=== PATIENT | female | born 1930 | race Caucasian/White ===

== ENCOUNTER 2018-09-15 18:20 | Emergency (ER) | payer MEDICARE, OTHER ==
[2018-09-15 18:34] VITALS: RESP 16
--- NOTE | 2018-09-15 18:59 | ED ---
General Adult HPI - General Chief complaint: Fall Stated complaint: Fall Source: EMS Mode of arrival: EMS Limitations: no limitations - History of Present Illness Initial comments: Dictation was produced using [email or web address] dictation software. please excuse any grammatical, word or spelling errors. Chief Complaint: 87-year-old female on L [place] presents from neurologic after fall out of wheelchair. History of Present Illness: Patient is a 7-year-old female who fell out of her wheelchair approximately 1 hour prior to arrival. Patient was at the medical [place] where she fell asleep. She fell asleep and fell forward out of her wheelchair. Follows witnessed by senior care staff. She presents here with her family member. Patient is on L Domenico for atrial fibrillation. Patient denies any loss of consciousness. Patient noted significant swelling around the right eye. Denies any vision loss or The ROS documented in this emergency department record has been reviewed and confirmed by me. Those systems with pertinent positive or negative responses have been documented in the HPI. All other systems are other negative and/or noncontributory. - Related Data Home Medications Medication Instructions Recorded Confirmed Acetaminophen [Tylenol] 650 mg PO Q8H PRN 09/15/18 09/15/18 Aspirin EC [Ecotrin Low Dose] 81 mg PO DAILY@0800 09/15/18 09/15/18 Baclofen [Lioresal] 5 mg PO BID 09/15/18 09/15/18 Cholecalciferol (Vitamin D3) 2,000 unit PO DAILY 09/15/18 09/15/18 [Vitamin D3] Lisinopril [Zestril] 20 mg PO DAILY 09/15/18 09/15/18 Metoprolol Tartrate [Lopressor] 25 mg PO BID 09/15/18 09/15/18 Polyethylene Glycol 3350 [Miralax] 17 gm PO DAILY PRN 09/15/18 09/15/18 Pravastatin Sodium [Pravachol] 40 mg PO HS 09/15/18 09/15/18 Sennosides/Docusate Sodium 1 tab PO Q12H PRN 09/15/18 09/15/18 [Senna-S Laxative Tablet] cloNIDine HCL [Catapres] 0.1 mg PO Q8H PRN 09/15/18 09/15/18 traMADol HCL [Ultram] 50 mg PO TID@0500,1300,2100 09/15/18 09/15/18 Previous Rx's Medication Instructions Recorded Apixaban [Eliquis] 2.5 mg PO BID #60 tab 04/21/16 Erythromycin Ophth Oint [Romycin 1 applic RIGHT EYE QID #1 gm 09/15/18 Ophth Oint] Allergies Allergy/AdvReac Type Severity Reaction Status Date / Time Mushroom AdvReac Nausea & Verified 09/15/18 18:34 Vomiting shellfish derived [Shellfish] AdvReac Unknown Verified 09/15/18 18:34 Review of Systems ROS Statement: Those systems with pertinent positive or pertinent negative responses have been documented in the HPI. ROS Other: All systems not noted in ROS Statement are negative. Past Medical History Past Medical History: Atrial Fibrillation, CVA/TIA, Hyperlipidemia, Hypertension , Osteoarthritis (OA) Additional Past Medical History / Comment(s): Diverticulitis History of Any Multi-Drug Resistant Organisms: None Reported Past Surgical History: No Surgical Hx Reported Additional Past Surgical History / Comment(s): Ear Surgery Past Anesthesia/Blood Transfusion Reactions: No Reported Reaction Past Psychological History: No Psychological Hx Reported Smoking Status: Former smoker Past Alcohol Use History: Occasional Past Drug Use History: None Reported - Past Family History Mother Family Medical History: Cancer, GI Bleed Additional Family Medical History / Comment(s): Hodjkin's disease General Exam - General Exam Comments Initial Comments: PHYSICAL EXAM: General Impression: Alert and oriented x3, not in acute distress HEENT: Ecchymoses around the periorbital region on the right eye without tarsal plate sparing, extra-ocular movements intact, pupils equal and reactive to light bilaterally, mucous membranes moist, no hemotympanum, no blood in the naris, no vital sign Cardiovascular: Heart regular rate and rhythm, S1&S2 audible, no murmurs, rubs or gallops Chest: Lungs clear to auscultation bilaterally, no rhonchi, no wheeze, no rales Abdomen: Bowel sounds present, abdomen soft, non-tender, non-distended, no organomegaly Musculoskeletal: Pulses present and equal in all extremities, no peripheral edema Motor: Inability to move right shoulder which is chronic Neurological: CN II-XII grossly intact, no focal motor or sensory deficits noted Skin: Intact with no visualized rashes Psych: Normal affect and mood Limitations: no limitations Course Vital Signs 09/15/18 18:25 Temperature 97.6 F Pulse Rate 98 Respiratory 16 Rate Blood Pressure 118/90 O2 Sat by Pulse 95 Oximetry Medical Decision Making - Medical Decision Making ED course: An-year-old female on L Markie presents after head trauma after falling out of wheelchair. Vital signs upon arrival are within acceptable limits.Laboratory evaluation obtained showing no acute processes. Computed tomography scan of the head and C-spine does not show any acute intracranial processes. Facial CT does not show any fractures. Chest x-ray shows no acute processes. Vision testing was within normal limits. Patient had intraocular pressures measured which was within normal limits on bilateral eyes. Patient had fluorescein testing there was a small corneal abrasion noted to the 4 o'clock position of the right eye. Patient laceration was repaired using Steri-Strips. Tetanus is updated. Patient given prescription for erythromycin ointment and told to follow-up with health and wellness advisor for management of corneal abrasion. - Lab Data Result diagrams: 09/15/18 18:55 Lab Results 09/15/18 09/15/18 Range/Units 18:55 18:55 WBC 7.0 (3.8-10.6) k/uL RBC 4.54 (3.80-5.40) m/uL Hgb 13.4 (11.4-16.0) gm/dL Hct 42.0 (34.0-46.0) % MCV 92.6 (80.0-100.0) fL MCH 29.5 (25.0-35.0) pg MCHC 31.8 (31.0-37.0) g/dL RDW 14.0 (11.5-15.5) % Plt Count 309 (150-450) k/uL Neutrophils % 70 % Lymphocytes % 17 % Monocytes % 9 % Eosinophils % 3 % Basophils % 1 % Neutrophils # 4.9 (1.3-7.7) k/uL Lymphocytes # 1.2 (1.0-4.8) k/uL Monocytes # 0.6 (0-1.0) k/uL Eosinophils # 0.2 (0-0.7) k/uL Basophils # 0.0 (0-0.2) k/uL PT 10.9 (9.0-12.0) sec INR 1.1 (<1.2) Disposition Clinical Impression: Facial contusion Disposition: HOME SELF-CARE Condition: Good Instructions: Fall Prevention for Older Adults (ED) Prescriptions: Erythromycin Ophth Oint [Romycin Ophth Oint] 1 applic RIGHT EYE QID #1 gm Is patient prescribed a controlled substance at d/c from ED?: No Referrals: Oriana Garcia MD [Primary Care Provider] - 1-2 days Bucky Hart MD [STAFF PHYSICIAN] - 1-2 days Time of Disposition: 20:23
[2018-09-15 19:11] LABS: Basophils % (A) 1 %; Eosinophils # (A) 0.2 k/uL (0-0.7); Eosinophils % (A) 3 %; HGB 13.4 gm/dL (11.4-16.0); Lymphocytes # (A) 1.2 k/uL (1.0-4.8); Lymphocytes % (A) 17 %; MCH 29.5 pg (25.0-35.0); MCHC 31.8 g/dL (31.0-37.0); MCV 92.6 fL (80.0-100.0); Mean Platelet Volume 6.8; Monocytes # (A) 0.6 k/uL (0-1.0); Monocytes % (A) 9 %; Neutrophils # (A) 4.9 k/uL (1.3-7.7); Neutrophils % (A) 70 %; Platelet Count 309 k/uL (150-450); RBC 4.54 m/uL (3.80-5.40)
--- NOTE | 2018-09-15 19:36 | CT ---
EXAMINATION TYPE: CT facial bones wo con DATE OF EXAM: 09/15/2018 COMPARISON: None HISTORY: Fall injury, bruising to right eye CT DLP: 2173.6 mGycm Automated exposure control for dose reduction was used. TECHNIQUE: CT scan of the sinuses is performed without contrast, axial images are obtained, coronal r eformatted images are also reviewed. FINDINGS: There is right-sided periorbital soft tissue swelling. The orbital margins are intact. Ther e is no evidence of a blowout fracture. There is fairly normal aeration of the paranasal sinuses. Ricki al bone appears intact. Maxilla is intact. Zygomatic arches appear normal. The mandibular ring appear s intact. Temporomandibular joints are intact. There is some osteoarthritis in the right temporal man dibular joint. IMPRESSION: Right periorbital soft tissue swelling. No fracture seen.
[2018-09-15 19:42] LABS: INR 1.1 (<1.2); Prothrombin Time 10.9 sec (9.0-12.0)
--- NOTE | 2018-09-15 19:47 | CT ---
EXAMINATION TYPE: CT brain demi soares DATE OF EXAM: 09/15/2018 COMPARISON: CT brain 04/21/2016 HISTORY: Fall injury, bruising to right eye CT DLP: 2173.6 mGycm Automated exposure control for dose reduction was used. TECHNIQUE: CT scan of the head and cervical spine are performed without contrast. FINDINGS: There is cerebral cortical atrophy. There is no mass effect nor midline shift. There is o ld right posterior parietal cortical infarct. There is no evidence of intracranial hemorrhage. The ca lvarium appears intact. There is a few millimeter anterior subluxation of C6 on C7. There is hypertrophic multilevel facet ar thropathy. The skull base is intact. There is minimal anterior subluxation of C7 in relation to T1. IMPRESSION: Cerebral atrophy. Old right parietal cortical infarct without change. No acute intracranial abnormali ty. Spondylotic changes in the cervical spine. No fracture.
--- NOTE | 2018-09-15 19:48 | XR ---
EXAMINATION TYPE: XR chest 1V DATE OF EXAM: 09/15/2018 COMPARISON: 05/05/2016 HISTORY: Chest pain TECHNIQUE: Single frontal view of the chest is obtained. FINDINGS: There is no heart failure nor confluent pneumonic infiltrate. Thoracic aorta is atheromato us. Costophrenic angles are clear. There are no hilar masses. IMPRESSION: No active cardiopulmonary disease. Atheromatous aorta. No change.
[2018-09-15] MEDS ORDERED: DIPH,PERTUS(ACELL)TETVAC-LF 0.5 ML VIAL IM ONE (20:22)
[2018-09-15 21:22] VITALS: BP 120/87; PULSE 94; TEMP 98
--- NOTE | 2018-09-18 01:19 | CDI ---
Dear Portillo Edouard DO: Please do addendum laceration site. Thank you, Chandan Wright, Electrical Project Manager. If you have any questions, please contact Consumer Electronic Retail Specialist at [phone]. [facility]
== END 2018-09-15 21:20 | disposition home or self-care (01) ==
LOC: EC 18:20
DX: S05.41XA Penetrating wound of orbit with or without foreign body, right eye, initial encounter (principal); S05.01XA Injury of conjunctiva and corneal abrasion without foreign body, right eye, initial encounter; I48.91 Unspecified atrial fibrillation; E78.5 Hyperlipidemia, unspecified; I10 Essential (primary) hypertension; M19.90 Unspecified osteoarthritis, unspecified site; I69.351 Hemiplegia and hemiparesis following cerebral infarction affecting right dominant side; Z87.891 Personal history of nicotine dependence; Z91.013 Allergy to seafood; Z91.018 Allergy to other foods; Z79.01 Long term (current) use of anticoagulants; Z79.82 Long term (current) use of aspirin; Z79.891 Long term (current) use of opiate analgesic; Z79.899 Other long term (current) drug therapy; Z23 Encounter for immunization; W05.0XXA Fall from non-moving wheelchair, initial encounter; Y93.89 Activity, other specified; Y92.099 Unspecified place in other non-institutional residence as the place of occurrence of the external cause
CPT/HCPCS: 36415; 70450; 70486; 71045; 72125; 85025; 85610; 90471; 90715; 99284